=== PATIENT | female | born 1985 | race Caucasian/White ===

== ENCOUNTER 2017-04-13 12:48 | Emergency (ER) | payer OTHER ==
[~2017-04-13] VITALS: Ht 147.3 cm; Wt 43.5 kg
[~2017-04-13 12:48] MED LIST: CIPRO 500MG TA500 MG PO; NOMEDS; PYRIDIUM 200MG200 MG PO; STERAPRED DS10 MG PO; ULTRAM50 MG PO
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
[2017-04-13] MEDS ORDERED: IBUPROFEN800 MG PO (14:46)
[2017-04-13] MEDS ORDERED: FLEXERIL10 MG PO (14:46)
[2017-04-13 14:55] VITALS: BP 104/65
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
== END 2017-04-13 14:56 | disposition home or self-care (01) ==
LOC: UTC 12:48
DX: S30.0XXA Contusion of lower back and pelvis, initial encounter (principal); V49.3XXA Car occupant (driver) (passenger) injured in unspecified nontraffic accident, initial encounter; Z88.0 Allergy status to penicillin; Z88.2 Allergy status to sulfonamides; F17.210 Nicotine dependence, cigarettes, uncomplicated

== ENCOUNTER 2017-05-11 13:32 | Emergency (ER) | payer OTHER ==
[~2017-05-11] VITALS: Ht 147.3 cm; Wt 44.5 kg
[~2017-05-11 13:32] MED LIST changes: +FLEXERIL10 MG PO; +IBUPROFEN800 MG PO
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
--- NOTE | 2017-05-11 15:28 | RADIOLOGY REPORT PS360 ---
CT CERVICAL SPINE W/O CONT INDICATION: NECK PAIN ORDERING PHYSICIAN: Ayala Hernandez MD PATIENT AGE: 32 years COMPARISON: None TECHNIQUE: Axial images are obtained without contrast. Sagittal and coronal reformatted images are reviewed as well. FINDINGS: Normal alignment. No fracture or dislocation. There is slight decrease in the disc space at C5-C6. No lytic or blastic change. There is mild fibrotic change in the lung apices with minimal paraseptal and facet disease change. IMPRESSION: 1. No acute finding. 2. Minimal degenerative disc disease C5-C6
--- NOTE | 2017-05-11 15:35 | RADIOLOGY REPORT PS360 ---
CT LUMBAR SPINE W/O CONTRAST CLINICAL INDICATION: LOW BACK PAIN ORDERING PHYSICIAN: Ayala Hernandez MD PATIENT AGE: 32 years COMPARISON: None TECHNIQUE:Axial, sagittal, and coronal images are generated and reviewed without contrast FINDINGS: Normal alignment. No acute fracture or dislocation. Incidental limbus vertebra noted along the anterior superior aspect of L3 and L4. No canal stenosis or significant degenerative change. Minimal bulging disc noted at L4-5 and L5-S1 of questioned clinical significance Incidental note made of a small amount fluid in the cul-de-sac. A clip is present in the lower pelvic region anteriorly IMPRESSION: No acute finding. Minimal bulging disc L5-S1 and L4-L5.
--- NOTE | 2017-05-11 15:47 | RADIOLOGY REPORT PS360 ---
CHEST(2 VIEWS-NOT PORTABLE) HISTORY: complains of right lower rib pain ORDERING PHYSICIAN: Ayala Hernandez MD PATIENT AGE: 32 years COMPARISON: None available FINDINGS: The cardiomediastinal silhouette and pulmonary vascularity are within normal limits. The lungs are clear without infiltrates, suspicious nodules, or pleural effusions. There is a calcified granuloma in the left upper lobe. Bilateral nodular opacities are present over the fifth ribs anteriorly likely related to nipple artifact No acute bony abnormalities. IMPRESSION: No acute finding
--- NOTE | 2017-05-11 15:48 | RADIOLOGY REPORT PS360 ---
[id number] VIEWS HISTORY: Right lower rib pain complains of right lower rib pain ORDERING PHYSICIAN: Ayala Hernandez MD PATIENT AGE: 32 years COMPARISON: None FINDINGS: Multiple views of the right ribs were obtained. No fracture or dislocation. No lytic or blastic change. IMPRESSION: Negative RIBS. If pain persists, consider follow-up exam in 7-[address] with 3-D reformats.
[2017-05-11] MEDS ORDERED: ROBAXIN500 M1 PO (16:11)
[2017-05-11] MEDS ORDERED: HYDROCODONE-APA1 TA1 PO (16:11)
[2017-05-11] MEDS ORDERED: DICLOFENAC 50MG50 MG PO (16:11)
[2017-05-11 16:20] VITALS: BP 108/52
--- OUTSIDE RECORDS SUMMARY | 2017-05-11 18:25 | External Medical Summary Rpt ---
Author Author LETICIA Flores, [employer] Organization [employer] Address Unknown Phone Unavailable
--- OUTSIDE RECORDS SUMMARY | 2017-05-11 18:25 | External Medical Summary Rpt | CCD ---
Author Author LETICIA Address Unknown Phone [email or web address] Purpose Continuity of Care Document - through 2016
--- OUTSIDE RECORDS SUMMARY | 2017-05-11 18:25 | External Medical Summary Rpt | CCD ---
Demographics Preferred Language Bulgarian Marital Status Unknown Hindu Affiliation Unknown Race Unknown Ethnic Group Unknown Author Author , LETICIA KELLY Address Unknown Phone Immunization No patient found.
--- OUTSIDE RECORDS SUMMARY | 2017-05-11 18:25 | External Medical Summary Rpt | CCD ---
Demographics Preferred Language Azeri Marital Status Unknown Judaism Affiliation Unknown Race Unknown Ethnic Group Unknown Author Author , LETICIA KELLY Address Unknown Phone Immunization No patient found.
--- OUTSIDE RECORDS SUMMARY | 2017-05-11 18:25 | External Medical Summary Rpt | CCD ---
Author Author LETICIA Address Unknown Phone Purpose Continuity of Care Document - through 2016
== END 2017-05-11 16:21 | disposition home or self-care (01) ==
LOC: ER 13:32
DX: M54.5 Low back pain (principal); F17.210 Nicotine dependence, cigarettes, uncomplicated